=== PATIENT | female | born 1950 | race Caucasian/White ===

== ENCOUNTER 2020-10-22 07:28 | Observation (INO) | payer OTHER, BC ==
[2020-10-22 08:08] LABS: Absolute Lymphocytes (CBC) 1.4 K/uL (0.7-4.9); Basophils % 0.6 % (0-1.3); Lymphocytes % 33.7 % (15.3-44.8); MPV 10.3 fL (7.6-11.3); RBC Red Blood Cell Count 4.65 M/uL (3.86-4.86)
--- NOTE | 2020-10-22 08:31 | P.HP ---
Date of Service: 10/22/20 PC: This 70-year-old female presents for elective laparoscopic cholecystectomy with intraoperative cholangiogram. HPC: Patient is experiencing right upper quadrant abdominal pain, radiating into her back, for the last few years and months. Pain has intensified and a workup was found have cholecystitis with cholelithiasis. PMH: Negative PSHx: NAD SOC: No known allergies SYS REVIEW: No cough, wheeze, shortness of breath. No chest pain or palpitations no urinary complaints good exercise tolerance O/E awake alert vital signs are stable HEENT: Nonicteric Chest: Air entry equal bilaterally ABD: Abdomen is soft today, minimal discomfort LOCO: Intact DATA: Has documented gallstones IMPRESSION: Chronic cholecystitis with cholelithiasis PLAN: I will take her the operating room for laparoscopic possible open cholecystectomy with a cholangiogram. The risks of this procedure have been discussed. The possibility of bleeding, infection, injury to bile ducts blood vessels intestines has been described. The possible need for an open and/or further surgeries and procedures was discussed. She understands and wants to proceed.
[2020-10-22] MEDS ORDERED: Ringers Lactate 1,000 ML IV ONE (08:34)
[2020-10-22] MEDS ORDERED: CEFOXITIN/SWI 1gm 1 GM/10 ML SYR ONE (08:35)
[2020-10-22 08:37] LABS: Albumin 4.3 g/dL (3.4-5.0); Bilirubin Direct 0.2 mg/dL (0-0.2); Bilirubin Total 1.1 mg/dL (0.2-1.0); Potassium 3.8 mmol/L (3.5-5.1); Protein, Total 8.1 g/dL (6.4-8.2)
[2020-10-22] MEDS ORDERED: FENTANYL CITR 100 MCG/2 ML ONE (08:38)
[2020-10-22] MEDS ORDERED: propofoL 200 MG/20 ML VIAL IV ONE (08:38)
[2020-10-22] MEDS ORDERED: ROCURONIUM 50 MG/5 ML VIAL IV ONE (08:38)
[2020-10-22] MEDS ORDERED: LIDOCAINE 1% MPF 5 ML VIAL ONE (08:38)
[2020-10-22] MEDS ORDERED: CELECOXIB 100 MG CAPSULE ONE (08:51)
[2020-10-22] MEDS ORDERED: ACETAMINOPHEN 500 MG TAB ONE (08:51)
--- NOTE | 2020-10-22 09:03 | RAD REPORT ---
EXAM DESCRIPTION: RAD - Chest Pa And Lat (2 Views) - 10/22/2020 8:07 am CLINICAL HISTORY: STAT, PREOP, SAME DAY SUGERY, BED 2 Chest pain. COMPARISON: No comparisons FINDINGS: The lungs are clear. The heart is normal in size. No displaced fractures. IMPRESSION: No acute or concerning finding suspected.
[2020-10-22] MEDS ORDERED: KETOROLAC 30 MG/ML INJ ONE (09:12)
[2020-10-22] MEDS ORDERED: dexAMETHasone 10 MG/ML VIAL ONE (09:12)
[2020-10-22] MEDS ORDERED: ONDANSETRON 4 MG/2 ML VIAL ONE (09:18)
[2020-10-22] MEDS ORDERED: GLYCOPYRROLATE 0.2 MG/ML SYR ONE ×3 (09:18→09:46)
--- NOTE | 2020-10-22 09:39 | P.OP ---
Preoperative diagnosis: Chronic cholecystitis and cholelithiasis Postoperative diagnosis: The same Primary procedure: Laparoscopic cholecystectomy Secondary procedure: With cholangiogram Other procedure(s): Efren block Anesthesia: General Estimated blood loss: Less than 10 cc Specimen: 1 gallbladder and contents Operative Technique: The patient was brought to the operating room placed supine on the table. After the induction of adequate general endotracheal anesthesia, the area of the abdomen was prepped with a DuraPrep solution, and draped in the usual aseptic manner. A subumbilical incision was made. This brought down through the skin and subcutaneous tissue. The Visiport was used to enter the peritoneal cavity and created pneumoperitoneum to approximately 12 mm of mercury. Under direct vision a 5 mm trocar was placed in the upper midline, and 2 other 5 mm trocars on the right lateral side. The patient's head was then elevated and rolled towards the bus operator's side. We could see a chronically inflamed and distended gallbladder. A grasper was placed on the fundus of the gallbladder. Another 1 was placed down by Delores's pouch. Applying lateral traction we were able to dissect and expose the cystic duct and artery. Having obtained the critical view, the artery was clipped and divided in the usual manner. A clip was then placed between the gallbladder and the cystic duct. An opening was made into the cystic duct. We attempted then to pass the cholangiocath into the cystic duct. We were able to obtained a cholangiogram. There was good flow contrast into the duodenum, no filling defects were noted. The catheter was removed. Clips were now placed on the distal portion of the cystic duct. The cystic duct was then divided. The gallbladder was now dissected free from the liver bed, placed into an Endo-Catch, and brought out through the umbilical trocar site. The gallbladder fossa was inspected to ensure adequate hemostasis. It was irrigated with a saline solution and the irrigant aspirated from the peritoneal cavity. 0.25% Marcaine was aerosolized into the right upper quadrant and the gallbladder fossa. A Efren block was now done of the anterior abdominal wall using approximately 8 cc of 0.25% Marcaine. The umbilical trocar site was now approximated with an Endo Close and an absorbable sutures. The pneumoperitoneum was then collapsed, the suture tied, and myra applied to the skin. A further 0.25% Marcaine was injected around are incision sites. At the end of the procedure the patient was in a stable condition when sent to the recovery room. Needle sponge instrument count were correct. 1 specimen was sent for histopathology. Complications: None Transferred to: Recovery Room
[2020-10-22] MEDS ORDERED: NEOSTIGMINE 1 MG/ML -5 ML ONE (09:46)
[2020-10-22] MEDS ORDERED: HYDROCODONE/APAP 7.5/325 MG TAB PO PRN (10:05)
[2020-10-22] MEDS ORDERED: ONDANSETRON 4 MG/2 ML VIAL IV PRN (10:05)
[2020-10-22] MEDS ORDERED: MORPHINE 4 MG/ML SYR IV PRN (10:05)
--- NOTE | 2020-10-22 10:22 | RAD REPORT ---
EXAM DESCRIPTION: RAD - Cholangiogram Oper-Xray Or - 10/22/2020 10:13 am CLINICAL HISTORY: LAP JAYESH W IOC Abdominal pain COMPARISON: No comparisons FINDINGS: Cystic duct injection was performed by operating surgeon. No intrahepatic biliary tree dil atation. Common bile duct shows no evidence of retained stone. Total fluoro time: 0.1 minutes. Four images were obtained. IMPRESSION: No retained common duct stone seen.
[2020-10-22] MEDS: Ringers Lactate 1,000 ML IV SCH ×2 (12:26→22:16)
[2020-10-22 14:53] VITALS: BMI 30.7
[2020-10-22 21:41] VITALS: O2SAT 94
[2020-10-23 08:17] VITALS: BP 132/67; TEMP 97.3
== END 2020-10-23 10:57 | disposition home or self-care (01) ==
LOC: OR 07:28 → 2ND 10:19
PROVIDERS: ADMIT Surgery; ATTEND Surgery
PROC: BF00YZZ Plain Radiography of Bile Ducts using Other Contrast (ICD-10-PCS; 2020-10-22)
PROC: 0FT44ZZ Resection of Gallbladder, Percutaneous Endoscopic Approach (ICD-10-PCS; principal; 2020-10-22 08:30)
DX: K80.10 Calculus of gallbladder with chronic cholecystitis without obstruction (principal)
CPT/HCPCS: 47563; 93005; 85025; 80048; 36415; 80076; 88304; 74300; 71046; 94010; J2704; J3010; J1100; J2710; J7120 ×3; J2405; G0378; G0379